=== PATIENT | female | born 2000 | race Hispanic/Latino ===

== ENCOUNTER 2022-11-02 14:16 | Emergency (ER) | payer OTHER ==
[~2022-11-02] VITALS: Ht 167.6 cm; Wt 120.2 kg
[2022-11-02] MEDS ORDERED: IBUPROFEN 600 MG TAB PO STA (14:43)
[2022-11-02] MEDS ORDERED: IBUPROFEN 400 MG TAB ONE (15:18)
[2022-11-02] MEDS ORDERED: IBUPROFEN600 MG PO (16:51)
[2022-11-02] MEDS ORDERED: CYCLOBENZAPRINE5 MG PO (16:54)
== END 2022-11-02 17:00 | disposition home or self-care (01) ==
LOC: FSED 14:31
DX: S60.221A Contusion of right hand, initial encounter (principal); R07.89 Other chest pain; V43.52XA Car driver injured in collision with other type car in traffic accident, initial encounter; Y92.488 Other paved roadways as the place of occurrence of the external cause
CPT/HCPCS: 71101; 99283